=== PATIENT | female | born 1950 | race Caucasian/White ===

== ENCOUNTER 2021-05-31 12:47 | Outpatient (CLI) | payer MEDICARE ==
[2021-05-31 13:53] LABS: Hemoglobin 12.4 g/dL (12.0-15.5); Mean Corpuscular HGB CONC 32.8 g/dL (32.0-36.0); Mean Corpuscular Hemoglobin 31.6 pg (27.0-33.0); Mean Corpuscular Volume 96.2 fl (81.6-98.3); Mean Platelet Volume 11.4 fl (7.4-10.4); Platelet Count 271 10x3/uL (150-450); RBC Distribution Width 12.6 % (11.5-14.5); Red Blood Cell (RBC) Count 3.93 10x6/uL (3.90-5.03); White Blood Cell (WBC) Count 8.9 10x3/uL (3.5-10.5)
[2021-05-31 14:04] LABS: Anion Gap 14 mmol/L (10-20); BUN (Urea Nitrogen) 12 mg/dL (9.8-20.1); Calc. Creatinine Clearance 0 mL/min (70-130); Carbon Dioxide 23 mmol/L (23-31); Chloride 108 mmol/L (98-107); Glucose 98 mg/dL (80-115); Potassium 4.2 mmol/L (3.5-5.1); Sodium 141 mmol/L (136-145)
[2021-05-31 21:51] LABS: SARS-CoV-2 PCR by NAA Not Detected (NotDetected)
== END 2021-05-31 12:48 | disposition home or self-care (01) ==
LOC: LABBT 12:47
PROVIDERS: ATTEND Thoracic Surgery (Cardiothoracic Vascular Surgery)
DX: Z01.812 Encounter for preprocedural laboratory examination (principal); I25.10 Atherosclerotic heart disease of native coronary artery without angina pectoris; Z20.822 Contact with and (suspected) exposure to COVID-19
CPT/HCPCS: 80048; 85027; 86850; 86900; 86901; U0003; U0005

== ENCOUNTER 2021-05-31 13:15 | Inpatient (IN) | payer MEDICARE ==
[2021-05-31 13:53] LABS: Hemoglobin 12.4 g/dL (12.0-15.5); Mean Corpuscular HGB CONC 32.8 g/dL (32.0-36.0); Mean Corpuscular Hemoglobin 31.6 pg (27.0-33.0); Mean Corpuscular Volume 96.2 fl (81.6-98.3); Mean Platelet Volume 11.4 fl (7.4-10.4); Platelet Count 271 10x3/uL (150-450); RBC Distribution Width 12.6 % (11.5-14.5); Red Blood Cell (RBC) Count 3.93 10x6/uL (3.90-5.03); White Blood Cell (WBC) Count 8.9 10x3/uL (3.5-10.5)
[2021-05-31 14:04] LABS: Anion Gap 14 mmol/L (10-20); BUN (Urea Nitrogen) 12 mg/dL (9.8-20.1); Calc. Creatinine Clearance 0 mL/min (70-130); Carbon Dioxide 23 mmol/L (23-31); Chloride 108 mmol/L (98-107); Glucose 98 mg/dL (80-115); Potassium 4.2 mmol/L (3.5-5.1); Sodium 141 mmol/L (136-145)
[2021-05-31 21:51] LABS: SARS-CoV-2 PCR by NAA Not Detected (NotDetected)
[2021-06-04] MEDS ORDERED: Albumin 5% 500 ML ONE (06:29)
[2021-06-04] MEDS ORDERED: EPINEPHrine 1 MG/ML AMP ONE (06:29)
[2021-06-04] MEDS ORDERED: Dexamethasone 4 mg/ml Vial ONE (06:29)
[2021-06-04] MEDS ORDERED: Bupivacaine PF 0.5% 30 ML VIAL ONE (06:29)
[2021-06-04] MEDS ORDERED: Heparin 10,000 UNITS/1 ML VIAL 30,000 UNITS in Sodium Chloride 0.9% 1,000 ML FS SCH (06:45)
[2021-06-04] MEDS ORDERED: Midazolam HCl 5 mg/5 ml Vial ONE (06:48)
[2021-06-04] MEDS ORDERED: Fentanyl 250 MCG/5 ML VIAL ONE (06:48)
[2021-06-04] MEDS ORDERED: ceFAZolin 2 GM/DEX 5% 100 ML BAG ONE (06:58)
[2021-06-04] MEDS ORDERED: Midazolam HCl 2 mg/2 ml Vial ONE (07:05)
[2021-06-04] MEDS ORDERED: Sodium Bicarb 50 MEQ/50 ML Abboject 8.4% SYRINGE ONE ×2 (07:29→12:49)
[2021-06-04] MEDS ORDERED: Protamine Sulfate 250 MG/25 ML VIAL ONE (07:29)
[2021-06-04] MEDS ORDERED: Mannitol 12.5 GM/50 ML ONE (07:29)
[2021-06-04] MEDS ORDERED: Heparin 5,000 UNITS/ML VIAL ONE (07:29)
[2021-06-04] MEDS ORDERED: Thrombin 5000 UNITS/5 ML VIAL ONE (07:29)
[2021-06-04] MEDS ORDERED: Potassium Chloride 60 MEQ/30 ML VIAL ONE (07:29)
[2021-06-04] MEDS ORDERED: Papaverine 60 MG/2 ML VIAL ONE (07:29)
[2021-06-04] MEDS ORDERED: Calcium Chloride 1 GM/10 ML Abboject SYRINGE ONE (07:29)
[2021-06-04] MEDS ORDERED: Aminocaproic Acid 5 GM/20 ML VIAL ONE (07:29)
[2021-06-04] MEDS ORDERED: Lidocaine 2% PF 100 mg/5 ml Syringe ONE (07:29)
[2021-06-04] MEDS ORDERED: Magnesium Sulfate 1 GM/2 ML VIAL ONE (07:29)
[2021-06-04] MEDS ORDERED: Vecuronium 10 MG VIAL ONE (07:29)
[2021-06-04] MEDS ORDERED: PROPOFOL 200 MG/20 ML VIAL ONE (07:29)
[2021-06-04] MEDS ORDERED: Ondansetron PF 4 MG/2 ML Vial ONE (07:29)
[2021-06-04] MEDS ORDERED: Heparin 30,000 units/30 ml VIAL ONE (07:29)
[2021-06-04] MEDS ORDERED: Cardioplegic Soln 1,000 ML BAG ONE (07:29)
[2021-06-04] MEDS ORDERED: PHENYLEPHRINE-NS 100 MCG/ML 10 ML SYRINGE ONE ×3 (08:10→10:27)
[2021-06-04] MEDS ORDERED: Lidocaine 2% PF 5 ML VIAL ONE (08:10)
[2021-06-04] MEDS ORDERED: Magnesium 2 GM/50 ML 2 GM in Premix Bag 1 BAG IVPB SCH (10:26)
[2021-06-04] MEDS ORDERED: hydrALAZINE 20 MG/ML VIAL SLOW IVP PRN (10:26)
[2021-06-04] MEDS ORDERED: Bisacodyl 10 MG SUPP PR PRN (10:26)
[2021-06-04] MEDS ORDERED: traMADol HCl 50 MG TAB PO PRN (10:26)
[2021-06-04] MEDS ORDERED: Potassium Chloride 20 MEQ/100 ML PREMIX BAG IVPB PRN (10:26)
[2021-06-04] MEDS ORDERED: Bisacodyl 5 MG TAB PO PRN (10:26)
[2021-06-04] MEDS ORDERED: Ondansetron PF 4 MG/2 ML Vial IVP PRN (10:26)
[2021-06-04] MEDS ORDERED: Promethazine HCl 25 MG/ML VIAL IM PRN (10:26)
[2021-06-04] MEDS ORDERED: Nitroglycerin 50 MG/250 ML BOT 250 ML IVPB PRN (10:26)
[2021-06-04] MEDS ORDERED: Post-Op Insulin Drip Protocol IVPB ONE (10:26)
[2021-06-04] MEDS ORDERED: Fentanyl 100 MCG/2 ML VIAL SLOW IVP PRN ×2 (10:26)
[2021-06-04] MEDS ORDERED: Guaifenesin DM 100-10/5 ML UDCUP PO PRN (10:26)
[2021-06-04] MEDS ORDERED: Hetastarch 6% 500 ML 500 ML IVPB PRN (10:26)
[2021-06-04] MEDS ORDERED: Morphine 2 MG/ML VIAL SLOW IVP PRN (10:26)
[2021-06-04] MEDS ORDERED: Mag-Al 1200 mg/1200 mg/30 ML UDCUP PO PRN (10:26)
[2021-06-04 11:23] LABS: Actual Bicarbonate (HCO3a) 19.1 mEq/L (22-28); CO2 Tension 36.2 mmHg (35.0-45.0); Calcium, Ionized (arterial) 1.38 mmol/L (1.12-1.30); Carboxyhemoglobin (COHb) 0.2 gm% (0.0-3.0); Hemoglobin (Hb) 12.3 g/dL (12.0-16.0); O2 Tension (PaO2), arterial 118.8 mmHg (> 80.0); Potassium - ABG Lab 3.62 mmol/L (3.70-5.30); pH, Arterial 7.34 (7.35-7.45)
[2021-06-04 11:26] LABS: Puncture Site Arterial Line
[2021-06-04] MEDS ORDERED: Dextrose 5% in Water 1,000 ML IV PRN (11:30)
[2021-06-04] MEDS ORDERED: HUMULIN R 100 UNITS in Sodium Chloride 0.9% 100 ML IVPB SCH (11:30)
[2021-06-04] MEDS ORDERED: Lantus 1000 UNITS/10 ML VIAL SC PRN (11:30)
[2021-06-04] MEDS ORDERED: Dextrose 50% Abboject 50 ML SYRINGE SLOW IVP PRN (11:30)
[2021-06-04 11:42] LABS: #Eosinphils 0.1 thou/uL (0.0-0.7); #Lymphocytes 2.1 thou/uL (1.20-3.40); #Monocytes 0.5 thou/uL (0.11-0.59); #Neutrophils 11.7 thou/uL (1.40-6.50); %Basophils 0.2 % (0.0-1.0); %Eosinophils 0.7 % (0.0-10.0); %Lymphocytes 14.7 % (21.0-51.0); %Monocytes 3.5 % (0.0-10.0); %Neutrophils 80.9 % (42.0-75.0); Hemoglobin 11.8 g/dL (12.0-16.0); Mean Corpuscular Hemoglobin 31.1 pg (27.0-31.0); Mean Corpuscular Volume 97.3 fL (78.0-98.0); Mean Platelet Volume 8.4 fL (7.4-10.4); Platelet Count 218 thou/uL (130-400); RBC Distribution Width 11.6 % (11.5-14.5); White Blood Cell (WBC) Count 14.5 thou/uL (4.8-10.8)
[2021-06-04] MEDS: D5 1/2 NS w/20 mEq KCL 1,000 ML IV SCH (11:52)
[2021-06-04] MEDS: Aspirin 325 MG TAB PO SCH (12:03)
[2021-06-04] MEDS: Atorvastatin Calcium 40 MG TAB PO SCH (12:04)
[2021-06-04] MEDS: Ketorolac Tromethamine 30 MG/ML VIAL IVP SCH ×2 (12:06→17:11)
[2021-06-04 12:13] LABS: Anion Gap 9 mmol/L (10-20); BUN (Urea Nitrogen) 10 mg/dL (9.8-20.1); Calc. Creatinine Clearance 113 mL/min (70-130); Calcium 9.9 mg/dL (7.8-10.44); Carbon Dioxide 21 mmol/L (23-31); Chloride 113 mmol/L (98-107); Glucose 175 mg/dL (80-115); Potassium 3.9 mmol/L (3.5-5.1); Sodium 139 mmol/L (136-145)
[2021-06-04 12:16] LABS: INR-International Normal Ratio 1.2; Prothrombin Time 15.2 sec (12.0-14.7)
[2021-06-04 12:17] LABS: PTT 34.5 sec (22.9-36.1)
[2021-06-04 12:42] LABS: Base Excess (BEa) -6.4 mEq/L (-2.0 to +3.0); CO2 Tension 43.4 mmHg (35.0-45.0); Calcium, Ionized (arterial) 1.28 mmol/L (1.12-1.30); Carboxyhemoglobin (COHb) 0.3 gm% (0.0-3.0); Hemoglobin (Hb) 10.5 g/dL (12.0-16.0); O2 Tension (PaO2), arterial 104.6 mmHg (> 80.0); Potassium - ABG Lab 3.82 mmol/L (3.70-5.30); pH, Arterial 7.28 (7.35-7.45)
[2021-06-04] MEDS: ceFAZolin Sodium/D5W 2 GM in Premix Bag 1 BAG IVPB SCH (15:03)
[2021-06-04] MEDS: traMADol HCl 50 MG TAB PO PRN (15:04)
[2021-06-04 18:40] LABS: Hemoglobin 9.3 g/dL (12.0-16.0)
[2021-06-04 18:49] LABS: Potassium 4.2 mmol/L (3.5-5.1)
[2021-06-04] MEDS: Norepinephrine 8 MG/0.9% NS 250 ML IVPB PRN (20:48)
[2021-06-04] MEDS: Amitriptyline HCl 25 MG TAB PO SCH (20:55)
[2021-06-04] MEDS: Famotidine/PF 20 mg/2ml Vial SLOW IVP SCH (20:57)
[2021-06-04] MEDS: Acetaminophen 325 MG TAB PO PRN (22:56)
[2021-06-05 03:41] LABS: #Lymphocytes 1.3 thou/uL (1.20-3.40); #Monocytes 0.8 thou/uL (0.11-0.59); #Neutrophils 7.7 thou/uL (1.40-6.50); %Basophils 0.1 % (0.0-1.0); %Eosinophils 0.1 % (0.0-10.0); %Lymphocytes 13.3 % (21.0-51.0); %Monocytes 8.1 % (0.0-10.0); %Neutrophils 78.5 % (42.0-75.0); Hemoglobin 8.7 g/dL (12.0-16.0); Mean Corpuscular HGB CONC 33.6 g/dL (32.0-36.0); Mean Corpuscular Hemoglobin 32.6 pg (27.0-31.0); Mean Platelet Volume 8.5 fL (7.4-10.4); Platelet Count 213 thou/uL (130-400); RBC Distribution Width 11.5 % (11.5-14.5); Red Blood Cell (RBC) Count 2.66 mill/uL (4.20-5.40); White Blood Cell (WBC) Count 9.8 thou/uL (4.8-10.8)
[2021-06-05 04:05] LABS: Anion Gap 8 mmol/L (10-20); BUN (Urea Nitrogen) 9 mg/dL (9.8-20.1); Calc. Creatinine Clearance 107 mL/min (70-130); Carbon Dioxide 24 mmol/L (23-31); Chloride 112 mmol/L (98-107); Glucose 145 mg/dL (80-115); Sodium 140 mmol/L (136-145)
[2021-06-05] MEDS: Acetaminophen 325 MG TAB PO PRN ×3 (04:18→21:55)
[2021-06-05] MEDS: traMADol HCl 50 MG TAB PO PRN ×2 (04:19→12:20)
[2021-06-05] MEDS: Ketorolac Tromethamine 30 MG/ML VIAL IVP SCH ×5 (06:09→23:05)
[2021-06-05] MEDS: ceFAZolin Sodium/D5W 2 GM in Premix Bag 1 BAG IVPB SCH ×2 (06:10)
[2021-06-05] MEDS: Magnesium 2 GM/50 ML 2 GM in Premix Bag 1 BAG IVPB SCH (08:43)
[2021-06-05] MEDS: Atorvastatin Calcium 40 MG TAB PO SCH (08:43)
[2021-06-05] MEDS: Folic Acid 1 MG TAB PO SCH (08:43)
[2021-06-05] MEDS: Aspirin 325 MG TAB PO SCH (08:43)
[2021-06-05] MEDS: Famotidine/PF 20 mg/2ml Vial SLOW IVP SCH (08:44)
[2021-06-05] MEDS: D5 1/2 NS w/20 mEq KCL 1,000 ML IV SCH ×3 (08:45→23:13)
[2021-06-05] MEDS ORDERED: FLU VACC QS2021-22(65YR UP)/PF 240 MCG/0.7 ML SYRINGE IM ONE (09:00)
[2021-06-05] MEDS ORDERED: Ergocalciferol 1.25 MG(50,000 UNITS) CAP PO SCH (09:00)
[2021-06-05 09:06] LABS: Puncture Site Arterial Line
[2021-06-05] MEDS: Insulin Regular 300 UNITS/3 ML VIAL SC PRN ×2 (11:30→16:38)
[2021-06-05 11:40] VITALS: BMI 25.5
[2021-06-05] MEDS: Amitriptyline HCl 25 MG TAB PO SCH (20:32)
[2021-06-05] MEDS: Famotidine 20 MG TAB PO SCH (20:32)
[2021-06-05] MEDS: Norepinephrine 8 MG/0.9% NS 250 ML IVPB PRN (20:34)
[2021-06-06] MEDS: Insulin Regular 300 UNITS/3 ML VIAL SC PRN ×3 (00:52→09:55)
[2021-06-06] MEDS: traMADol HCl 50 MG TAB PO PRN ×2 (03:22→20:51)
[2021-06-06 04:12] LABS: #Lymphocytes 1.9 thou/uL (1.20-3.40); #Monocytes 0.7 thou/uL (0.11-0.59); #Neutrophils 6.3 thou/uL (1.40-6.50); %Basophils 0.3 % (0.0-1.0); %Eosinophils 0.3 % (0.0-10.0); %Lymphocytes 21.3 % (21.0-51.0); %Monocytes 7.3 % (0.0-10.0); %Neutrophils 70.8 % (42.0-75.0); Hemoglobin 8.6 g/dL (12.0-16.0); Mean Corpuscular HGB CONC 34.2 g/dL (32.0-36.0); Mean Corpuscular Hemoglobin 33.6 pg (27.0-31.0); Mean Corpuscular Volume 98.3 fL (78.0-98.0); Mean Platelet Volume 8.8 fL (7.4-10.4); Platelet Count 151 thou/uL (130-400); RBC Distribution Width 11.3 % (11.5-14.5); Red Blood Cell (RBC) Count 2.55 mill/uL (4.20-5.40); White Blood Cell (WBC) Count 8.9 thou/uL (4.8-10.8)
[2021-06-06 04:35] LABS: Anion Gap 7 mmol/L (10-20); BUN (Urea Nitrogen) 9 mg/dL (9.8-20.1); Calc. Creatinine Clearance 118 mL/min (70-130); Carbon Dioxide 24 mmol/L (23-31); Chloride 111 mmol/L (98-107); Glucose 124 mg/dL (80-115); Potassium 4.2 mmol/L (3.5-5.1); Sodium 138 mmol/L (136-145)
[2021-06-06] MEDS: Ketorolac Tromethamine 30 MG/ML VIAL IVP SCH ×3 (06:11→17:31)
[2021-06-06] MEDS: D5 1/2 NS w/20 mEq KCL 1,000 ML IV SCH (08:10)
[2021-06-06] MEDS: Famotidine 20 MG TAB PO SCH ×2 (08:11→20:51)
[2021-06-06] MEDS: Folic Acid 1 MG TAB PO SCH (08:11)
[2021-06-06] MEDS: Atorvastatin Calcium 40 MG TAB PO SCH (08:11)
[2021-06-06] MEDS: Aspirin 325 MG TAB PO SCH (08:12)
[2021-06-06] MEDS: Magnesium 2 GM/50 ML 2 GM in Premix Bag 1 BAG IVPB SCH (08:13)
[2021-06-06] MEDS: Acetaminophen 325 MG TAB PO PRN ×2 (09:41→16:43)
[2021-06-06] MEDS ORDERED: Dextrose 5% in Water 1,000 ML IV PRN (11:34)
[2021-06-06] MEDS ORDERED: HumaLOG 300 UNITS/3 ML VIAL SC PRN (11:34)
[2021-06-06] MEDS ORDERED: Dextrose 50% Abboject 50 ML SYRINGE SLOW IVP PRN (11:34)
[2021-06-06] MEDS: Amitriptyline HCl 25 MG TAB PO SCH (20:51)
[2021-06-07] MEDS: Ketorolac Tromethamine 30 MG/ML VIAL IVP SCH ×4 (00:22→18:19)
[2021-06-07] MEDS: Atorvastatin Calcium 40 MG TAB PO SCH (08:20)
[2021-06-07] MEDS: Aspirin 325 MG TAB PO SCH (08:21)
[2021-06-07] MEDS: Folic Acid 1 MG TAB PO SCH (08:21)
[2021-06-07] MEDS: Famotidine 20 MG TAB PO SCH ×2 (08:21→20:37)
[2021-06-07] MEDS ORDERED: Zolpidem Tartrate 5 MG TAB PO PRN (17:15)
[2021-06-07] MEDS ORDERED: Nitroglycerin 0.4 MG TAB (25 Tab Bottle) SL PRN (17:15)
[2021-06-07] MEDS ORDERED: Bisacodyl 5 MG TAB PO PRN (17:15)
[2021-06-07] MEDS ORDERED: Mineral Oil ENEMA PR PRN (17:15)
[2021-06-07] MEDS ORDERED: Bisacodyl 10 MG SUPP PR PRN (17:15)
[2021-06-07] MEDS ORDERED: diphenhydrAMINE 25 MG CAP PO PRN (17:15)
[2021-06-07] MEDS ORDERED: Mag-Al 1200 mg/1200 mg/30 ML UDCUP PO PRN (17:15)
[2021-06-07] MEDS ORDERED: Guaifenesin DM 100-10/5 ML UDCUP PO PRN (17:15)
[2021-06-07] MEDS ORDERED: Milk Of Magnesia 30 ML UDCUP PO PRN (17:15)
[2021-06-07] MEDS ORDERED: Insulin Regular 300 UNITS/3 ML VIAL SC PRN (17:30)
[2021-06-07] MEDS ORDERED: Furosemide 40 MG TAB PO SCH (17:30)
[2021-06-07] MEDS ORDERED: Potassium Chloride 10 MEQ TAB PO SCH (17:45)
[2021-06-07] MEDS: Amitriptyline HCl 25 MG TAB PO SCH (20:37)
[2021-06-07] MEDS: traMADol HCl 50 MG TAB PO PRN (22:24)
[2021-06-08] MEDS: Ketorolac Tromethamine 30 MG/ML VIAL IVP SCH ×4 (00:38→17:22)
[2021-06-08] MEDS ORDERED: Potassium Chloride 10 MEQ TAB PO SCH (08:00)
[2021-06-08] MEDS ORDERED: Furosemide 40 MG TAB PO SCH (09:00)
[2021-06-08] MEDS: Folic Acid 1 MG TAB PO SCH (09:24)
[2021-06-08] MEDS: Carvedilol 3.125 MG TAB PO SCH ×2 (09:24→16:25)
[2021-06-08] MEDS: Aspirin 325 MG TAB PO SCH (09:24)
[2021-06-08] MEDS: Atorvastatin Calcium 40 MG TAB PO SCH (09:24)
[2021-06-08] MEDS: Famotidine 20 MG TAB PO SCH ×2 (09:24→21:13)
[2021-06-08] MEDS: Amitriptyline HCl 25 MG TAB PO SCH (21:13)
[2021-06-09] MEDS ORDERED: Mometasone 100 MCG/PUFF (1 INHALER) INH SCH ×2 (07:45→18:30)
[2021-06-09] MEDS: Atorvastatin Calcium 40 MG TAB PO SCH (09:38)
[2021-06-09] MEDS: Folic Acid 1 MG TAB PO SCH (09:38)
[2021-06-09] MEDS: Famotidine 20 MG TAB PO SCH (09:38)
[2021-06-09] MEDS: Aspirin 325 MG TAB PO SCH (09:38)
[2021-06-09] MEDS: Carvedilol 3.125 MG TAB PO SCH (09:38)
[2021-06-09 13:04] VITALS: BP 121/70; TEMP 98
== END 2021-06-09 14:57 | disposition home or self-care (01) | DRG 236 ==
LOC: SURG A 06-04 05:55 → CCU 06-04 11:14 → EDSTATUS 06-04 13:15 → 2NO 06-07 17:11
PROVIDERS: ADMIT Thoracic Surgery (Cardiothoracic Vascular Surgery); ATTEND Thoracic Surgery (Cardiothoracic Vascular Surgery)
PROC: 021209W Bypass Coronary Artery, Three Arteries from Aorta with Autologous Venous Tissue, Open Approach (ICD-10-PCS; principal; 2021-06-04)
PROC: 02100Z9 Bypass Coronary Artery, One Artery from Left Internal Mammary, Open Approach (ICD-10-PCS; 2021-06-04)
PROC: 06BP4ZZ Excision of Right Saphenous Vein, Percutaneous Endoscopic Approach (ICD-10-PCS; 2021-06-04)
PROC: 5A1221Z Performance of Cardiac Output, Continuous (ICD-10-PCS; 2021-06-04)
PROC: 3E033XZ Introduction of Vasopressor into Peripheral Vein, Percutaneous Approach (ICD-10-PCS; 2021-06-04)
DX: I25.10 Atherosclerotic heart disease of native coronary artery without angina pectoris (principal); J90 Pleural effusion, not elsewhere classified; J44.9 Chronic obstructive pulmonary disease, unspecified; E11.9 Type 2 diabetes mellitus without complications; E78.5 Hyperlipidemia, unspecified; F41.9 Anxiety disorder, unspecified; M79.7 Fibromyalgia; Z87.891 Personal history of nicotine dependence; Z79.899 Other long term (current) drug therapy; Z79.82 Long term (current) use of aspirin; Z79.84 Long term (current) use of oral hypoglycemic drugs
CPT/HCPCS: 36416; 36430; 71045; 80048; 82805; 85025; 85027; 85610; 85730; 86850; 86900; 86901; 93005; 93010; 93798; 94002; 94640; J0171; J1100; J1642; J1644; J1815; J1885; J2001; J2150; J2250; J2405; J2440; J2704; J2720; J3010; J3370; J3475; J3480; J3490; J7620; P9045; S0017; S0020; S0028; U0003; U0005

== ENCOUNTER 2022-09-28 10:45 | Outpatient (CLI) | payer MEDICARE, OTHER | END 2022-09-28 10:46 | disposition home or self-care (01) | LOC: RAD 10:45 | PROVIDERS: ATTEND Internal Medicine Critical Care Medicine | DX: R06.00 Dyspnea, unspecified (principal) | CPT/HCPCS: 71046 ==

== ENCOUNTER 2024-06-19 06:39 | Day surgery (SDC) | payer OTHER ==
[2024-06-18 11:45] VITALS: BMI 23.1
[2024-06-19] MEDS ORDERED: Vancomycin 1 GM VIAL ONE (07:11)
[2024-06-19] MEDS ORDERED: CEFAZOLIN 2 GM VIAL ONE (07:25)
[2024-06-19 07:30] LABS: #Basophils Less than 0.03 10x3/uL (0.0-0.2); %Basophils 0.3 % (0.0-1.0); %Eosinophils 0.6 % (0.0-10.0); %Lymphocytes 36.3 % (21.0-51.0); %Monocytes 8.4 % (0.0-10.0); %Neutrophils 54.2 % (42.0-75.0); Hemoglobin 11.2 g/dL (12.0-16.0); Mean Corpuscular Hemoglobin 32.7 pg (27.0-31.0); Mean Platelet Volume 10.5 fL (7.4-10.4); Platelet Count 234 10x3/uL (130-400); RBC Distribution Width 14.9 % (11.5-14.5); Red Blood Cell (RBC) Count 3.43 mill/uL (4.20-5.40)
[2024-06-19] MEDS ORDERED: Lidocaine 2% 6 ML (Jelly) SYR ONE (07:32)
[2024-06-19] MEDS ORDERED: PROPOFOL 20 ML ONE (07:33)
[2024-06-19] MEDS ORDERED: Rocuronium Bromide 10 MG/ML (10ML VIAL) ONE (07:33)
[2024-06-19] MEDS ORDERED: Ondansetron PF 4 MG/2 ML Vial ONE (07:33)
[2024-06-19] MEDS ORDERED: Dexamethasone 4 mg/ml Vial ONE (07:33)
[2024-06-19] MEDS ORDERED: fentaNYL 50 mcg/mL 1 mL Vial ONE ×3 (07:35→09:36)
[2024-06-19] MEDS ORDERED: Ketamine In 0.9 % NaCl 50 MG/5 ML SYRINGE ONE (07:36)
[2024-06-19 07:49] LABS: Anion Gap 12 mmol/L (10-20); BUN (Urea Nitrogen) 12 mg/dL (9.8-20.1); Calc. Creatinine Clearance 65 mL/min (70-130); Calcium 9.1 mg/dL (7.8-10.44); Carbon Dioxide 25 mmol/L (23-31); Chloride 112 mmol/L (98-107); Estimated GFR 82; Glucose 95 mg/dL (83-110); Potassium 3.7 mmol/L (3.5-5.1); Sodium 145 mmol/L (136-145)
[2024-06-19] MEDS ORDERED: PHENYLEPHRINE-NS 100 MCG/ML 10 ML SYRINGE ONE (07:49)
[2024-06-19] MEDS ORDERED: Albuterol HFA (OR) 200 PUFF INH ONE ×2 (07:49→07:53)
[2024-06-19] MEDS ORDERED: ePHEDrine Sulfate 50 MG/10 ML VIAL ONE (08:10)
[2024-06-19] MEDS ORDERED: SUGAMMADEX SODIUM 200 MG/2 ML VIAL ONE (08:19)
[2024-06-19] MEDS ORDERED: HYDROmorphone 0.5 MG/0.5 ML SYRINGE ONE ×2 (09:08→09:22)
[2024-06-19] MEDS ORDERED: HYDROcodone/Acetaminophen 5/325 mg Tablet ONE (10:10)
[2024-06-19] MEDS ORDERED: Promethazine HCl 25 MG/ML VIAL ONE (10:18)
== END 2024-06-19 12:29 | disposition home or self-care (01) ==
LOC: SDC 06:39
PROVIDERS: ATTEND Neurological Surgery
PROC: 0ST20ZZ Resection of Lumbar Vertebral Disc, Open Approach (ICD-10-PCS; principal; 2024-06-19)
DX: M54.16 Radiculopathy, lumbar region (principal); J44.9 Chronic obstructive pulmonary disease, unspecified; I10 Essential (primary) hypertension; E11.9 Type 2 diabetes mellitus without complications; E78.5 Hyperlipidemia, unspecified; I25.10 Atherosclerotic heart disease of native coronary artery without angina pectoris; Z95.1 Presence of aortocoronary bypass graft
CPT/HCPCS: 63030; 80048; 85025; 93005; J1100; J2405; J2550; J2704; J3010; J3370; J3490; 36415; 93010